=== PATIENT | female | born 1955 | race Caucasian/White ===

== ENCOUNTER 2025-03-21 22:13 | Observation (INO) ==
[2025-03-21 22:32] VITALS: BMI 23.9
--- NOTE | 2025-03-21 22:33 | EKG ---
Test Reason : Chest Pain Blood Pressure : */* mmHG Vent. Rate : 115 BPM Atrial Rate : * BPM P-R Int : * ms QRS Dur : 76 ms QT Int : 340 ms P-R-T Axes : * 143 120 degrees QTc Int : 470 ms Atrial fibrillation with rapid ventricular response -new Right axis deviation -new Low voltage QRS Septal infarct , age undetermined Abnormal ECG When compared with ECG of 02-JAN-2024 15:30, Significant changes have occurred Confirmed by Johnathan Jeffrey MD ([id number]) on 03/22/2025 5:59:48 AM Referred By: Confirmed By: Johnathan Jeffrey MD
[2025-03-21] MEDS: LOPRESSOR TAB 25 MG PO SCH (22:43)
[2025-03-21] MEDS: ELIQUIS PO SCH (22:43)
[2025-03-21 22:56] LABS: MEAN PLATELET VOLUME 7.7 fL (7.4-11.0); RED CELL DISTRIBUTION WIDTH 12.8 % (11.6-16.5)
[2025-03-21 23:01] LABS: BLOOD/HEMOGLOBIN,URINE NEGATIVE (NEGATIVE); LEUKOCYTE ESTERASE ,URINE NEGATIVE (NEGATIVE); NITRITES,URINE NEGATIVE (NEGATIVE)
[2025-03-21 23:03] LABS: APPEARANCE,URINE CLEAR (CLEAR)
[2025-03-21 23:07] LABS: SQUAMOUS EPITHELIAL CELL,UR MANY /HPF (NEGATIVE)
[2025-03-21 23:10] LABS: COR NA(FOR HYPERGLY) 146 mmol/L (136-145); CREATININE 1.21 mg/dL (0.55-1.02); eGFR NON BLACK RACES 47 (>60)
[2025-03-21] MEDS ORDERED: NS 1,000 ML IV 1,000 ML ONE (23:25)
[2025-03-21] MEDS: NS 1,000 ML IV 1,000 ML IV ONE (23:27)
--- NOTE | 2025-03-22 01:18 | DR.CP ---
HPI Time Seen Time Seen by Provider: 03/21/25 22:25 PCP Primary Care Physician: ANA WATKINS Complaint Chief Complaint Doctor Comments: Patient comes in with chest tightness and feeling like her heart is pounding. This started earlier tonight. She does have a history of anxiety and states she is not sure if it is her anxiety but she took 1 mg of Xanax earlier and had no relief. Denies any fever. Patient states she recently recovered from COVID and was then diagnosed with sinusitis and she is currently taking Augmentin for it. Chief Complaint:: PT AMBULATORY IN ED WITH C/O TIGHTNESS IN CHEST, HEART POUNDING, WEAK AND NAUSEA THAT STARTED EARILER TONIGHT. PT STATES SHE HAS ANXIETY AND THOUGHT THAT IS WHAT WAS WRONG SO SHE TOOK XANAX 0.5MG X2 WITHOUT RELIEF. COVID-19 Coronavirus risk:travel/contact w/high risk person: No Has patient experienced Coronavirus symptoms: No Source History Provided: Patient Mode of Arrival Mode of Arrival: Ambulatory Timing Onset of Chief Complaint: 03/21/25 PMH PMH Past Medical History: Yes Past Medical History: Anxiety and Depression Past Surgical History: Yes Surgical History: Hysterectomy and Ortho Surgery Past Surgical History Comment: GANGLION CYST REMOVED FROM RIGHT WRIST Family History History of Family Medical Conditions: Yes Family Medical History: Diabetes Mellitus and Cancer Social History Does patient currently use any type of tobacco product: No Have you used tobacco products in the last 12 months: No Type of Tobacco Use: None Does any household member use tobacco: No Alcohol Use: None Do you use any recreational Drugs:: No Lives With: Spouse Lives Where: Home Travel Risk Coronavirus risk:travel/contact w/high risk person: No Has patient experienced Coronavirus symptoms: No Infectious screening In the last 2 months have you had wt loss of >10#?: NO Have you had fever, night sweats or hemotysis?: No Have you traveled outside the country in the last 6 months?: No Isolation: Standard ROS Review of Systems Constitutional: No Symptoms Reported Eyes: No Symptoms Reported ENTM: No Symptoms Reported Respiratoy: No Symptoms Reported Cardiovascular: See HPI and Palpitations; negative Chest Pain, Edema or Syncope Gastrointestinal/Abdominal: No Symptoms Reported Genitourinary: No Symptoms Reported Neurological: No Symptoms Reported Musculoskeletal: No Symptoms Reported Integumentary: No Symptoms Reported Hematologic/Lymphatic: No Symptoms Reported Endocrine: No Symptoms Reported Psychiatric: No Symptoms Reported All Other Systems: Reviewed and Negative PE Vitals Vitals: Vital Signs Temperature 97.7 F Pulse Rate 108 Pulse Rate 106 Pulse Rate 111 Pulse Rate 105 Pulse Rate 103 Pulse Rate 106 Pulse Rate 114 Pulse Rate 112 Pulse Rate 119 Pulse Rate 116 Pulse Rate 118 Pulse Rate 118 Pulse Rate 122 Pulse Rate 122 Pulse Rate 124 Pulse Rate 130 Pulse Rate 133 Respiratory Rate 18 Respiratory Rate 21 Respiratory Rate 14 Respiratory Rate 18 Respiratory Rate 13 Respiratory Rate 13 Respiratory Rate 14 Respiratory Rate 12 Respiratory Rate 17 Respiratory Rate 21 Respiratory Rate 26 Respiratory Rate 24 Respiratory Rate 20 Blood Pressure 99/57 Blood Pressure 118/65 Blood Pressure 127/70 Blood Pressure 127/70 Blood Pressure 127/70 Blood Pressure 119/85 Blood Pressure 119/85 Blood Pressure 125/60 Blood Pressure 127/79 Blood Pressure 121/66 Blood Pressure 153/90 O2 Sat by Pulse Oximetry 97 O2 Sat by Pulse Oximetry 100 O2 Sat by Pulse Oximetry 98 O2 Sat by Pulse Oximetry 99 O2 Sat by Pulse Oximetry 99 O2 Sat by Pulse Oximetry 96 O2 Sat by Pulse Oximetry 97 O2 Sat by Pulse Oximetry 99 O2 Sat by Pulse Oximetry 98 O2 Sat by Pulse Oximetry 97 O2 Sat by Pulse Oximetry 96 O2 Sat by Pulse Oximetry 98 O2 Sat by Pulse Oximetry 97 General Limitations: No Limitations General Appearance: Alert and In No Apparent Distress Head Head Exam: Normal Inspection Eyes Eye exam: Normal Appearance ENT ENT Exam: Normal Exam Chest Chest Inspection: Normal Inspection Respiratory Respiratory Exam: Normal Lung Sounds Bilat Cardiovascular Cardiovascular Exam: Tachycardia and Irregular Rhythm Pulse: Normal Edema: Normal Abdominal Exam Abdominal Exam: Normal Inspection, Normal Bowel Sounds and Soft Extremities Extremities Exam: Normal Inspection Back Back Exam: Normal Inspection Neurologic Neurological Exam: Alert and Oriented X3 Psychiatric Psychiatric Exam: Normal Affect and Normal Mood Skin Skin Exam: Warm, Dry, Intact and Normal Color COURSE Treatment Treatment: Discussed results of workup with patient and she is agreeable to admission. Consultation Called: : Consultation Comments: Discussed case with Dr. Govea and he is agreeable to admission. ROR Labs Reviewed Laboratory Results Reviewed?: Yes 03/21/25 22:35 03/21/25 22:35 Laboratory: WBC 7.9 X10^3/uL (3.6-10.0) 03/21/25 22:35 RBC 4.87 X10^6/uL (3.5-5.4) 03/21/25 22:35 Hgb 14.9 g/dL (12.0-16.0) 03/21/25 22: Hct 42.7 % (36.0-47.0) 03/21/25 22: MCV 87.8 fL (80.0-100.0) 03/21/25 22: MCH 30.6 pg (27.0-34.0) 03/21/25: MCHC 34.8 g/dL (33.0-35.0) 03/21/25: RDW 12.8 % (11.6-16.5) 03/21/25: Plt Count 345 X10^3/uL (150.0-450.0) 03/21/25: MPV 7.7 fL (7.4-11.0) 03/21/25 22: Neut % (Auto) 67.8 % (42.0-75.0) 03/21/25: Lymph % (Auto) 22.3 % (21.0-51.0) 03/21/25 22:35 [place] % (Auto) 5.9 % (0.0-13.0) 03/21/25 22: Eos % (Auto) 2.2 % (0.9-2.9) 03/21/25 22: Baso % (Auto) 1.8 % (0.2-1.0) H 03/21/25:35 Neut # (Auto) 5.4 x10^3/uL (2.2-4.8) H 03/21/25 22:35 Lymph # (Auto) 1.8 X10^3/uL (1.3-2.9) 03/21/25 22:35 [place] # (Auto) 0.5 x10^3/uL (0.3-0.8) 03/21/25: Eos # (Auto) 0.2 x10^3/uL (0.0-0.2) 03/21/25 22:35 Baso # (Auto) 0.1 X10^3/uL (0.0-0.1) 03/21/25: Absolute Nucleated RBC 0.1 /100WBC 03/21/25: Sodium 145 mmol/L (136-145) 03/21/25 22:35 Corrected Sodium 146 mmol/L (136-145) H 03/21/25 22:35 Potassium 3.4 mmol/L (3.5-5.1) L 03/21/25 22:35 Chloride 105 mmol/L (98-107) 03/21/25 22:35 Carbon Dioxide 32.4 mmol/L (21-32) H 03/21/25 22:35 BUN 22 mg/dL (7-18) H 03/21/25 22:35 Creatinine 1.21 mg/dL (0.55-1.02) H 03/21/25 22:35 Est GFR (MDRD) Af Amer 57 (>60) L 03/21/25 22:35 Est GFR (MDRD) Non-Af 47 (>60) L 03/21/25 22:35 Glucose 125 mg/dL (65-99) H 03/21/25 22:35 Calcium 9.3 mg/dL (8.5-10.1) 03/21/25 22:35 Corrected Calcium TNP 03/21/25 22:35 Total Bilirubin 0.20 mg/dL (0.2-1.0) 03/21/25 22:35 AST 19 Units/L (15-37) 03/21/25 22:35 ALT 24 Units/L (12-78) 03/21/25 22:35 Alkaline Phosphatase 69 Units/L (46-116) 03/21/25 22:35 Creatine Kinase 76 Units/L (26-192) 03/21/25 22:35 Troponin I High Sens 8.4 ng/L (4.0-60.0) 03/22/25 00:30 Total Protein 7.7 g/dL (6.4-8.2) 03/21/25 22:35 Albumin 4.5 g/dL (3.4-5.0) 03/21/25 22:35 Globulin 3.2 g/dL (2.5-4.5) 03/21/25 22:35 Albumin/Globulin Ratio 1.4 Ratio (1.1-2.1) 03/21/25 22:35 Specimen Type Clean catch urine 03/21/25 22:54 Urine Color Straw (YELLOW) 03/21/25 22:54 Urine Appearance Clear (CLEAR) 03/21/25 22:54 Urine pH 6.0 (5.0 - 8.0) 03/21/25 22:54 Ur Specific [place] 1.010 (1.000-1.030) 03/21/25 22:54 Urine Protein 1+ (NEGATIVE) 03/21/25 22:54 Urine Glucose (UA) Negative (NEGATIVE) 03/21/25 22:54 Urine Ketones Negative (NEGATIVE) 03/21/25 22:54 Urine Blood Negative (NEGATIVE) 03/21/25 22:54 Urine Nitrite Negative (NEGATIVE) 03/21/25 22:54 Urine Bilirubin Negative (NEGATIVE) 03/21/25 22:54 Urine Urobilinogen Normal (NORMAL) 03/21/25 22: Ur Leukocyte Esterase Negative (NEGATIVE) 03/21/25 22:54 Urine RBC None seen /HPF (0-3) 03/21/25 22:54 Urine WBC None seen /HPF (0-5) 03/21/25 22:54 Ur Squamous Epith Cells Many /HPF (NEGATIVE) 03/21/25 22:54 Urine Bacteria Negative /HPF (NEGATIVE) 03/21/25 22:54 Ur Culture Indicated? No/not indicated 03/21/25 22:54 XRAY XRAY Interpreted by: Self (Chest x-ray reviewed and interpreted by myself. No acute cardiopulmonary abnormalities noted.) EKG Rate: 115 [place]: RAD Rhythm: Afib Block: None ST: Normal Opioid Opioid Risk Tool Age (Mario box if 16-45): No History of Preadolescent Sexual Abuse: No Total: 0 Total Score Risk Category: Low Risk Copyright: Kaiden RAMIREZ predicting aberrant behaviors Discharge Plan Diagnosis Discharge Problem: Atrial fibrillation with RVR Discharge Plan Patient Disposition: 09 ADMITTED INPATIENT Condition: Stable Prescriptions: No Action amoxicillin-pot clavulanate 875-125 mg tablet 1 tab PO BID 10 Days Qty: 20 0RF cetirizine [Allergy Relief (cetirizine)] 10 mg tablet 10 mg PO QDAY alprazolam 0.25 mg tablet 0.25 mg PO QDAY PRN estradiol 0.5 mg tablet 0.5 mg PO Q OTHER DAY ergocalciferol (vitamin D2) 1,250 mcg (50,000 unit) capsule 1,250 mcg PO QWEEK bupropion HCl 150 mg tablet extended release 24 hr 150 mg PO QAM Health Concerns: Post Hospitalization: new medications and changes needed to prevent readmission or further decline. Pt educated and given instructions on all concerns. Plan of Treatment: Continue with present treatment and follow up plan. Pt is to keep follow up appointment as instructed and take medications as ordered. Orders to Discharge Patient Discharge Orders: Transfer (Routine); Ordered 03/22/25 Ordered By: Ang Patel Follow ups/Referrals Follow ups/Referrals: Ana Watkins [Primary Care Provider, Emergency Department] - 3 days Instructions Stand Alone Forms: Find Help Web Site, Post Hospital Follow Up Care Print Language: SRI LANKAN
[2025-03-22] MEDS ORDERED: TYLENOL 325 MG TAB PO PRN (02:03)
[2025-03-22] MEDS ORDERED: PATIENT'S HOME MEDICATION (Alprazolam 0.25 mg tablet) PO PRN (02:03)
[2025-03-22] MEDS ORDERED: ULTRAM PO PRN (02:03)
[2025-03-22] MEDS: CONSULT PHARMACY - POTASSIUM & MAGNESIUM XX SCH (03:14)
[2025-03-22] MEDS ORDERED: ALPRAZOLAM ODT PO PRN (03:23)
[2025-03-22] MEDS: NS 1,000 ML IV 1,000 ML IV SCH (03:28)
[2025-03-22 05:14] LABS: MEAN PLATELET VOLUME 7.9 fL (7.4-11.0); RED CELL DISTRIBUTION WIDTH 13.1 % (11.6-16.5)
[2025-03-22 05:24] LABS: CREATININE 0.97 mg/dL (0.55-1.02); eGFR NON BLACK RACES > 60 (>60)
--- NOTE | 2025-03-22 07:35 | RAD ---
EXAM: Portable chest HISTORY: Chest tightness, weakness, nausea COMPARISON: 01/02/2024 FINDINGS: Hear t size is upper limits normal. Johanna are normal. No congestive heart failure, alveolar infiltrates or areas of consolidation identified. No pleural effusion or pneumothorax identified. Bony thorax is unremarkable. IMPRESSION: No significant abnormality identified THIS IS AN ELECTRONICALLY VERIFIED FINAL REPORT 03/22/2025 7:31 AM - Electronically signed by Juve Retana MD
--- NOTE | 2025-03-22 07:38 | DR.H&P ---
H&P History & Physical for Day of: H&P Date: 03/22/25 Chief Complaint Chief Complaint: chest tightness and palpitations History of Present Illness History of Present Illness: Patient comes in with chest tightness and feeling like her heart is pounding. This started earlier tonight. She does have a history of anxiety and states she is not sure if it is her anxiety but she took 1 mg of Xanax earlier and had no relief. Denies any fever. Patient states she recently recovered from COVID and was then diagnosed with sinusitis and she is currently taking Augmentin for it. Past Medical History Past Medical History: Anxiety and Depression Past Surgical History Surgical History: Cholecystectomy and Hysterectomy Family History Family Medical History: Diabetes Mellitus and Cancer Social History Does patient currently use any type of tobacco product: No Have you used tobacco products in the last 12 months: No Type of Tobacco Use: None Does any household member use tobacco: No Alcohol Use: Occasionally Drug Use: None Medications Home Medications: Home Medications Medication Instructions Recorded Confirmed Type alprazolam 0.25 mg tablet 0.25 mg PO QDAY PRN 03/21/25 03/21/25 History bupropion HCl 150 mg 24 hr tablet, 150 mg PO QAM 03/2103/21/25 History extended release cetirizine 10 mg tablet (Allergy 10 mg PO QDAY 5 03/21/25 History Relief (cetirizine)) ergocalciferol (vitamin D2) 1,250 1,250 mcg PO QWEEK 0 03/21/25 03/21/25 History mcg (50,000 unit) capsule estradiol 0.5 mg tablet 0.5 mg PO Q OTHER DAY 03/21/25 History Allergies Allergies Allergy/AdvReac Type Severity Reaction Status Date / Time No Known Drug Allergies Allergy Verified 03/21/25 22:25 Labs 03/22/25 04:22 03/22/25 04:22 Labs: Laboratory WBC 7.3 X10^3/uL (3.6-10.0) 03/22/25 04:22 RBC 4.33 X10^6/uL (3.5-5.4) 03/22/25 04:22 Hgb 13.3 g/dL (12.0-16.0) 03/22/25 04:22 Hct 37.9 % (36.0-47.0) 03/22/25 04:22 MCV 87.6 fL (80.0-100.0) 03/22/25 04:22 MCH 30.8 pg (27.0-34.0) 03/22/25 04:22 MCHC 35.2 g/dL (33.0-35.0) H 03/22/25 04:22 RDW 13.1 % (11.6-16.5) 03/22/25 04:22 Plt Count 328 X10^3/uL (150.0-450.0) 03/22/25 04:22 MPV 7.9 fL (7.4-11.0) 03/22/25 04:22 Neut % (Auto) 56.4 % (42.0-75.0) 03/22/25 04:22 Lymph % (Auto) 32.7 % (21.0-51.0) 03/22/25 04:22 [place] % (Auto) 8.0 % (0.0-13.0) 03/22/25 04:22 Eos % (Auto) 2.4 % (0.9-2.9) 03/22/25 04:22 Baso % (Auto) 0.5 % (0.2-1.0) 03/22/25 04:22 Neut # (Auto) 4.1 x10^3/uL (2.2-4.8) 03/22/25 04:22 Lymph # (Auto) 2.4 X10^3/uL (1.3-2.9) 03/22/25 04:22 [place] # (Auto) 0.6 x10^3/uL (0.3-0.8) 03/22/25 04:22 Eos # (Auto) 0.2 x10^3/uL (0.0-0.2) 03/22/25 04:22 Baso # (Auto) 0.0 X10^3/uL (0.0-0.1) 03/22/25 04:22 Absolute Nucleated RBC 0.1 /100WBC 03/22/25 04:22 Sodium 147 mmol/L (136-145) H 03/22/25 04:22 Corrected Sodium TNP 03/22/25 04:22 Potassium 3.8 mmol/L (3.5-5.1) 03/22/25 04:22 Chloride 110 mmol/L (98-107) H 03/22/25 04:22 Carbon Dioxide 29.2 mmol/L (21-32) 03/22/25 04:22 BUN 19 mg/dL (7-18) H 03/22/25 04:22 Creatinine 0.97 mg/dL (0.55-1.02) 03/22/25 04:22 Est GFR (MDRD) Af Amer > 60 (>60) 03/22/25 04:22 Est GFR (MDRD) Non-Af > 60 (>60) 03/22/25 04:22 Glucose 105 mg/dL (65-99) H 03/22/25 04:22 Calcium 8.7 mg/dL (8.5-10.1) 03/22/25 04:22 Corrected Calcium TNP 03/22/25 04:22 Magnesium 2.0 mg/dL (2.0-2.9) 03/22/25 04:22 Total Bilirubin 0.20 mg/dL (0.2-1.0) 03/22/25 04:22 AST 17 Units/L (15-37) 03/22/25 04:22 ALT 21 Units/L (12-78) 03/22/25 04:22 Alkaline Phosphatase 53 Units/L (46-116) 03/22/25 04:22 Creatine Kinase 76 Units/L (26-192) 03/21/25 22:35 Troponin I High Sens 8.4 ng/L (4.0-60.0) 03/22/25 00:30 Total Protein 6.2 g/dL (6.4-8.2) L 03/22/25 04:22 Albumin 3.5 g/dL (3.4-5.0) 03/22/25 04:22 Globulin 2.7 g/dL (2.5-4.5) 03/22/25 04:22 Albumin/Globulin Ratio 1.3 Ratio (1.1-2.1) 03/22/25 04:22 Specimen Type Clean catch urine 03/21/25 22:54 Urine Color Straw (YELLOW) 03/21/25 22:54 Urine Appearance Clear (CLEAR) 03/21/25 22:54 Urine pH 6.0 (5.0 - 8.0) 03/21/25 22:54 Ur Specific [place] 1.010 (1.000-1.030) 03/21/25 22:54 Urine Protein 1+ (NEGATIVE) 03/21/25 22:54 Urine Glucose (UA) Negative (NEGATIVE) 03/21/25 22:54 Urine Ketones Negative (NEGATIVE) 03/21/25 22:54 Urine Blood Negative (NEGATIVE) 03/21/25 22:54 Urine Nitrite Negative (NEGATIVE) 03/21/25 22:54 Urine Bilirubin Negative (NEGATIVE) 03/21/25 22:54 Urine Urobilinogen Normal (NORMAL) 03/21/25 22:54 Ur Leukocyte Esterase Negative (NEGATIVE) 03/21/25 22:54 Urine RBC None seen /HPF (0-3) 03/21/25 22:54 Urine WBC None seen /HPF (0-5) 03/21/25 22:54 Ur Squamous Epith Cells Many /HPF (NEGATIVE) 03/21/25 22:54 Urine Bacteria Negative /HPF (NEGATIVE) 03/21/25 22:54 Ur Culture Indicated? No/not indicated 03/21/25 22:54 Review of Systems Constitutional: No Symptoms Reported Eyes: No Symptoms Reported ENT: No Symptoms Reported Respiratory: Shortness of Breath (chest feels tight) Cardiovascular: Palpitations Gastrointestinal: No Symptoms Reported Genitourinary: No Symptoms Reported Musculoskeletal: No Symptoms Reported Skin: No Symptoms Reported Neurological: No Symptoms Reported Physical Exam Vital Signs: Vital Signs Temperature 98.0 F Temperature 98 F Pulse Rate [Left Brachial] 67 Pulse Rate [Left Brachial] 61 Pulse Rate [Left Brachial] 86 Pulse Rate [Left Brachial] 95 Pulse Rate [Left Brachial] 99 Pulse Rate 92 Pulse Rate 95 Pulse Rate 112 Pulse Rate 108 Pulse Rate 106 Pulse Rate 111 Pulse Rate 105 Pulse Rate 103 Pulse Rate 106 Pulse Rate 114 Pulse Rate 112 Pulse Rate 119 Respiratory Rate 17 Respiratory Rate 25 Respiratory Rate 12 Respiratory Rate 18 Respiratory Rate 17 Respiratory Rate 17 Respiratory Rate 17 Respiratory Rate 18 Respiratory Rate 18 Respiratory Rate 21 Respiratory Rate 14 Respiratory Rate 18 Respiratory Rate 13 Blood Pressure [Left Arm] 101/58 Blood Pressure [Left Arm] 91/55 Blood Pressure [Left Arm] 93/57 Blood Pressure [Left Arm] 98/63 Blood Pressure [Left Arm] 99/67 Blood Pressure 99/61 Blood Pressure 99/61 Blood Pressure 99/57 Blood Pressure 118/65 Blood Pressure 127/70 Blood Pressure 127/70 Blood Pressure 127/70 Blood Pressure 119/85 Blood Pressure 119/85 O2 Sat by Pulse Oximetry 96 O2 Sat by Pulse Oximetry 98 O2 Sat by Pulse Oximetry 98 O2 Sat by Pulse Oximetry 97 O2 Sat by Pulse Oximetry 97 O2 Sat by Pulse Oximetry 98 O2 Sat by Pulse Oximetry 95 O2 Sat by Pulse Oximetry 96 O2 Sat by Pulse Oximetry 97 O2 Sat by Pulse Oximetry 100 O2 Sat by Pulse Oximetry 98 O2 Sat by Pulse Oximetry 99 O2 Sat by Pulse Oximetry 99 Oriented: Normal Eyes: Normal Ear: Normal Nose: Normal Throat: Dry Respiratory: RLL Diminished and LLL Diminished Cardiovascular: Tachycardia Auscultation: Bowel Sounds: Normal Tenderness: Normal Skin: Normal Musculoskeletal: Normal Psychiatric: Anxiety Mood Description: Anxious Affect: Anxious Speech Pattern: Clear and Appropriate Assessment/Plan (1) Atrial fibrillation with RVR: Status: Acute Plan: ADMIT, ICU CARDIAC MONITORING AND RATE CONTROL BP CONTROL, VERIFY AND RESUME HOME MEDICATIONS ANTICOGULATION THERAPY, CARDIAC ENZYMES, CXR (2) Frontal sinusitis: Qualifiers: Chronicity: acute Recurrence: non-recurrent Qualified Code(s): J01.10 - Acute frontal sinusitis, unspecified Status: Acute (3) Anxiety: Status: Acute
--- NOTE | 2025-03-22 08:01 | EKG ---
Test Reason : hx afib w rvr Blood Pressure : */* mmHG Vent. Rate : 69 BPM Atrial Rate : 69 BPM P-R Int : 162 ms QRS Dur : 74 ms QT Int : 430 ms P-R-T Axes : 75 55 57 degrees QTc Int : 460 ms Normal sinus rhythm Possible Left atrial enlargement Borderline ECG When compared with ECG of 21-MAR-2025 22:31, back in nsr - ekg similar to 02 january 2024 Confirmed by Johnathan Jeffrey MD ([id number]) on 03/23/2025 7:17:50 AM Referred By: Confirmed By: Johnathan Jeffrey MD
[2025-03-22 08:37] VITALS: BP 103/59; PULSE 68; RESP 20; TEMP 97.8; O2SAT 95
[2025-03-22] MEDS: AUGMENTIN 875 MG/125 MG TAB PO SCH (08:47)
[2025-03-22] MEDS: WELLBUTRIN XL 150 MG (DAILY) PO SCH (08:47)
[2025-03-22] MEDS: K-DUR TAB 20 MEQ PO SCH (08:49)
== END 2025-03-22 11:10 | disposition home or self-care (01) ==
LOC: ICU 22:13 → ER 22:13 → ICU 03-22 01:54
PROVIDERS: ADMIT Internal Medicine; ATTEND Internal Medicine
DX: J01.10 Acute frontal sinusitis, unspecified; R94.4 Abnormal results of kidney function studies; R73.09 Other abnormal glucose; Z79.899 Other long term (current) drug therapy; F41.8 Other specified anxiety disorders; E87.0 Hyperosmolality and hypernatremia; R94.6 Abnormal results of thyroid function studies; Z65.8 Other specified problems related to psychosocial circumstances; R06.02 Shortness of breath; R00.0 Tachycardia, unspecified; R53.1 Weakness; R94.31 Abnormal electrocardiogram [ECG] [EKG]; I48.91 Unspecified atrial fibrillation; Z79.01 Long term (current) use of anticoagulants; R07.89 Other chest pain; Z60.8 Other problems related to social environment